=== PATIENT | female | born 1990 ===

== ENCOUNTER → 2022-05-24 15:16 | Outpatient (CLI) | payer OTHER, SELFPAY ==
--- NOTE | ~2022-05-24 | US_ITS ---
EXAMINATION: US OB /maternal detail DATE: 05/24/2022 15:57 INDICATION: Second trimester anatomic survey TECHNIQUE: Real-time ultrasound of the pelvis was performed. COMPARISON: None. FINDINGS: There is a single living fetus in breech presentation. The placenta is anterior and 4.9 cm from the i nternal cervical os. The cervical length is 4 cm. heart rate is 130 beats per minute (bpm). Fe noemi cardiac activity and movement are noted. The amniotic fluid index is subjectively normal. The following anatomy was identified as normal: 4 chamber heart 3 vessel cord cord insertion kidneys urinary bladder stomach spine diaphragm ventricles cisterna magna cerebellum The following biometric data were obtained: Biparietal diameter (BPD): 4.2 cm; head circumference (HC): 16.3 cm; abdominal circumference (AC): 14 .2 cm; femur length (FL): 2.9 cm. These measurements are concordant. Estimated weight is 284 g +/- 42 g, which correlates with the 63rd percentile when 08/18/2023 i s used as estimated date of delivery. As single measurements, these parameters are each equal to the following estimated gestational ages w ith ranges of +/- 2 standard deviations: BPD: 18 weeks 6 days ( 17 weeks 1 days - 20 weeks 4 days). HC: 19 weeks 0 days ( 17 weeks 4 days - 20 weeks 4 days). AC: 19 weeks 4 days ( 17 weeks 4 days - 21 weeks 4 days). FL: 19 weeks 0 days ( 17 weeks 2 days - 20 weeks 6 days). estimated gestational age based solely on measurements from this exam is 17 weeks 1 days +/- 1 weeks 2 days. IMPRESSION: 1. Single living fetus in breech presentation. 2. Estimated weight is 284 g +/- 42 g, which correlates with the 63rd percentile when 3 is used as estimated date of delivery. Reviewed, dictated and finalized at location B. IMPRESSION: 1. Single living fetus in breech presentation. 2. Estimated weight is 284 g +/- 42 g, which correlates with the 63rd per centile when 08/18/2023 is used as estimated date of delivery.
== END ==
PROVIDERS: PCP Obstetrics & Gynecology Gynecologic Oncology; Visit Provider Obstetrics & Gynecology Gynecologic Oncology
DX: Z36.9 Encounter for antenatal screening, unspecified (principal); Z3A.17 17 weeks gestation of pregnancy
CPT/HCPCS: 76805